=== PATIENT | female | born 1965 | race Caucasian/White ===

== ENCOUNTER 2017-10-20 13:30 | Emergency (ER) | payer OTHER, BC ==
[~2017-10-20] VITALS: Ht 157.5 cm; Wt 65.8 kg
[~2017-10-20 13:30] MED LIST: AMBIEN 10 MG TA10 MG PO; BIRTH CONTROL PO; CEFDINIR300 MG PO; FLEXERIL PO; FUROSEMIDE 20 M20 M1 PO; HYDRALAZINE 2525 MG PO; HYDROCHLOROTHIA25 M1 PO; HYDROCODONE-AP1 EA11 PO; HYDROXYCHLOROQ200 M1 PO; KLOR-CON 1010 MEQ PO; LASIX 20 MG TAB20 MG PO; LISINOPRIL40 MG PO; LYRICA 75 MG CA75 MG PO; LYRICA25 MG PO; MELOXICAM7.5 MG PO; METAXALONE800 MG PO; METHOTREXATE 22.5 MG PO; MIGRANAL1 ML NS; NEXIUM 40 MG CA40 M1 PO; NORCO 5-325 TA1 EACH PO; PHENERGAN 25 MG25 M1 PO; POTASSIUM20 PO; PREDNISONE50 MG PO; SINGULAIR 10 MG10 M1 PO; SULFASALAZINE500 M5 PO; TOPAMAX 100 MG100 MG PO; TOPAMAX 25 MG T25 M1 PO; TRIAMCINOLONE A80 G2 TOP; VALIUM5 MG PO; VENTOLIN HFA 1818 GM INH; VESICARE 5 MG TA5 M1 PO; XYZAL5 MG PO; ZOLOFT100 MG PO; [UNRECOGNIZED DRUG - OTHER] PO
[2017-10-20 15:20] LABS: URINE BILIRUBIN NEGATIVE (Negative); URINE BLOOD NEGATIVE (Negative); URINE CLARITY CLEAR; URINE COLOR YELLOW; URINE GLUCOSE-RANDOM* NEGATIVE (Negative); URINE KETONES NEGATIVE (Negative); URINE LEUKOCYTES-REFLEX 1+ (Negative); URINE NITRITE-REFLEX NEGATIVE (Negative); URINE PROTEIN (DIPSTICK) NEGATIVE (Negative); URINE UROBILINOGEN 0.2 E.U./dl (0.2-1.0)
[2017-10-20 15:23] LABS: HEMATOCRIT 37.4 % (37.0-47.0); HEMOGLOBIN 12.4 gm/dL (12.0-15.0); MCH 28.2 pg (26.0-34.0); MCHC 33.2 g/dL (28.0-37.0); RBC 4.4 mil/uL (4.20-5.00); RDW 20.3 % (10.5-14.5); WBC 10.1 thou/uL (4.0-11.0)
[2017-10-20 15:26] LABS: SQUAMOUS 4-10 Moderate /LPF (0-3); URINE RBC None Seen /HPF (0-2); URINE WBC-REFLEX 6-15 Few /HPF (0-5)
[2017-10-20 15:27] LABS: CASTS None Seen /LPF (None Seen); CRYSTALS None Seen /LPF (None Seen)
[2017-10-20 15:36] LABS: CALCIUM 9.3 mg/dL (8.5-10.1); CREATININE 0.8 mg/dL (0.6-1.0); POTASSIUM 4.1 mmol/L (3.5-5.1)
[2017-10-20 15:44] LABS: ALBUMIN 3.6 g/dL (3.4-5.0); TOTAL BILIRUBIN 0.2 mg/dL (<0.1-1.0); TOTAL PROTEIN 7.1 g/dL (6.4-8.2)
[2017-10-20] MEDS ORDERED: OXYCODONE HCL 55 MG PO (16:31)
[2017-10-20] MEDS ORDERED: FLAGYL500 MG PO (16:31)
[2017-10-20] MEDS ORDERED: CIPROFLOXACIN500 M1 PO (16:31)
[2017-10-20 16:35] VITALS: BP 128/67
[2017-12-17] MEDS ORDERED: MOBIC15 MG PO (10:51)
== END 2017-10-20 16:41 | disposition home or self-care (01) ==
LOC: ER 13:30
PROVIDERS: Emergency Medicine
DX: K57.92 Diverticulitis of intestine, part unspecified, without perforation or abscess without bleeding (principal); Z88.8 Allergy status to other drugs, medicaments and biological substances

== ENCOUNTER → 2017-12-17 | Outpatient (CLI) | payer OTHER, BC ==
[~2017-12-17] VITALS: Ht 157.5 cm; Wt 75.3 kg
[~2017-12-17] MED LIST changes: +CIPROFLOXACIN500 M1 PO; +FLAGYL500 MG PO; +MOBIC15 MG PO; +OXYCODONE HCL 55 MG PO
--- NOTE | ~2017-12-17 | HPC ---
[facility] [address] [place] [address] PAIN MANAGEMENT CONSULTATION Name: TYRON RUSSELL Room #: REG CARLOTA Asuncion.#: [id number] Admission: 12/17/17 Attend Phys: Munir Wood MD Discharge: Date of : 65 Report #: [id number] THIS REPORT FOR: //name// CC: Petar Wood DATE OF SERVICE: 12/17/2017 Followup visit for chronic low back pain with spondylosis. The patient would like facet injections. She has had very nice response to these treatments in the past. Extended relief has been noted and her last treatments in the facet region were in December 2016. She did have one interval appointment when she had an occipital nerve block, which may have been accompanied by an intravascular injection when she had a number of dizzy and lightheaded symptoms, we kept her in the office for a bit until they resolved. She responded to the injection, however. She has been told that she has breast cancer. A 10 cm lump was identified. It had been 2 years since she had had a mammogram. She has an upcoming mastectomy and has also consulted with a plastic surgeon. Because of the concern of being immobile for a period of time, she would like to get facet injections before the procedure. This seems to provide her with sustained relief when she is in the sitting and supine position. These injections are generally performed with a very small amount of triamcinolone and I think that they would be safe to perform prior to her upcoming surgery. MEDICATIONS: All medications were reviewed and reconciled. There have been no changes. I do not prescribe her medications. PHYSICAL EXAMINATION: GENERAL: Pleasant, alert and oriented. VITAL SIGNS: Blood pressure is 139/85, heart rate is 82. She is 5 feet 2 inches, 166 pounds for a BMI of 30.0. BREASTS: I did not perform a breast exam. MUSCULOSKELETAL: Examination of the spine reveals pain across the lower lumbar segment with forward flexion and worsened by back extension. Localized tenderness is located between the posterior superior iliac crest. IMPRESSION: Chronic low back pain with spondylosis. RECOMMENDATION: Bilateral L4-L5 and L5-S1 facet injections under fluoroscopic guidance. DESCRIPTION OF PROCEDURE: The patient was taken to fluoroscopic suite, placed prone, skin was prepped with ChloraPrep. Skin anesthetized first on the left. [address] [address] PAIN MANAGEMENT CONSULTATION Name: YVONNETYRON SWATHI Room #: REG [facility] Asuncion.#: [id number] Admission: 12/17/17 Attend Phys: Munir Wood MD Discharge: Date of : 65 Report #: [id number] A 25-gauge needle was advanced into the posterior inferior capsule of the joint at L5-S1 and L4-L5. No Omnipaque was utilized due to the small nature of the joint. I then injected each joint with 0.5 mL of 0.5% bupivacaine mixed with 10 mg of triamcinolone. Forman were removed. C-arm was moved to the right and a mirror image injection was performed at the L5-S1 and the L4-L5 facet joints on that side. She tolerated the procedure very well. She was observed for a short time in the recovery room. There were no complications. Her pain scores were reduced somewhat by the time she was discharged, and the plan is for her to follow up in the pain clinic on an as needed basis in the future. <ELECTRONICALLY SIGNED> By: Munir Wood MD 01/25/18 1408 [id number] Munir Wood MD /nt
[2017-12-17 10:35] VITALS: BP 139/85
== END ==
LOC: PAIN 07:23
DX: M47.896 Other spondylosis, lumbar region (principal); M54.5 Low back pain

== ENCOUNTER → 2020-01-05 | Outpatient (CLI) | payer BC, OTHER ==
[~2020-01-05] VITALS: Ht 157.5 cm; Wt 63.5 kg
[~2020-01-05] MED LIST changes: +DIHYDROERGOTAMIN1 ML NASAL; +KLOR-CON 10 ER10 MEQ PO; +MONTELUKAST PO; +NOLVADEX20 MG PO; +QNASL10.6 GM NASAL; +SPIRONOLACTONE25 MG PO; +TOPAMAX100 MG PO; +TRANSDERM-SCOP1 EACH TRANSDERM
--- NOTE | ~2020-01-05 | HPC ---
[facility] [place] [address] PAIN MANAGEMENT CONSULTATION Name: TYRON EDWARDS #: REG CARLOTA Torres#: [id number] Admission: 01/05/20 Attend Phys: Munir Wood MD Discharge: Date of : 65 Report #: [id number] THIS REPORT FOR: cc: ANGELINA MARS Physician not on staff Mnuir Wood MD ~ CC: ANGELINA MARS Physician staff Munir Wood DATE OF SERVICE: 01/05/2020 Followup visit today for chronic lumbosacral pain with lumbar spondylosis. The patient is a pleasant 54-year-old, who I last saw in 12/2017. At that time, she received L4-L5 and L5-S1 facet injections bilaterally. The injections were quite helpful providing months of pain relief. She, in fact, has not felt the need to return to the Pain Clinic for injections since those performed 2 years ago. Recently, her pain has been increasing in severity, limiting her mobility. She scores her daily pain as a 5-6/10. It is in the lumbar region with some radiation into the hips, but no further. There are no radicular components to her pain. She has been through a lot since I last saw her. She has had 10 surgeries for mastectomy and revision of the plastic surgery involved. She required a flap taken from the abdominal region and she has what looks to be a hernia in that region. She has an upcoming surgery planned for a Z-plasty or some sort of surgical revision of that scar. Her cancer is gone. She has completed all treatments. She fractured her ankle and required the care of an orthopedic surgeon that is completely now healed and she denies pain at this time. MEDICATIONS: Montelukast every nasal, spironolactone, topiramate, dihydroergotamine spray, transdermal scopolamine, tamoxifen, potassium, cyclobenzaprine, diazepam, Lasix, zolpidem and Xyzal. ALLERGIES: BUSPAR, PAROXETINE, TIZANIDINE. PHYSICAL EXAMINATION: VITAL SIGNS: Blood pressure 127/87, heart rate 73, respirations 14. She is 5 feet 2 inches, 157 pounds, BMI of 25.6. NECK: She has some neck pain and some cervical spondylitic discomfort with rotation, flexion and extension. Tenderness below the occiput. CHEST: Clear. [facility] [address] [place] [address] PAIN MANAGEMENT CONSULTATION Name: TYRON EDWARDS #: REG CLBuster Torres#: [id number] Admission: 01/05/20 Attend Phys: Munir Wood MD Discharge: Date of : 65 Report #: [id number] CARDIAC: Rhythm is regular. MUSCULOSKELETAL: Examination of the lumbar spine reveals tenderness across the lumbosacral segment. Pain is more significant with neck extension. Rotational movements also exacerbate pain. She has no radicular component. IMPRESSION: Lumbar spondylitic pain, which has responded beautifully to facet injections with good duration of response in the past. PROCEDURE: Bilateral L4-L5 and L5-S1 facet injections with bupivacaine and triamcinolone. After informed consent, she was taken to fluoroscopic suite where she was placed prone, skin was prepped with ChloraPrep. Skin was anesthetized first over the L4-L5 and then the L5-S1 facet. A 25-gauge 3-1/2 inch needles were gently advanced into position in the posterior inferior capsule. After negative aspiration, I injected each joint with 0.5 mL of 0.5% bupivacaine and 10 mg of triamcinolone. C-arm was moved to the right and a mirror image injection performed on that side, injecting the L4-L5, L5-S1 joints with the same solution and volume. She tolerated the injections well and was taken to recovery room for a short observation. Her pain score was 0 at discharge. Followup visit planned as needed. By: [id number] Munir Wood MD /nt
[2020-01-05 08:53] VITALS: BP 127/87
--- NOTE | 2020-01-05 09:12 | NUR ---
Pain Clinic Assessment: 1. History of Osteoarthritis: Not Applicable History of Rheumatoid Arthritis: HANDS 2. Height: 5 ft. 2 in. 157.5 cm. Weight: 140.0 lb. oz. 63.504 kg. Patient's BMI: 25.6 3. Vital Signs: BP: 127/87 Pulse: 73 Resp: 14 Temp: 02 Sat: 100 ECG Mon: 4. Pain Intensity: 5-6 5. Fall Risk: Dizziness: N Needs help standing or walking: N Fallen in the last 3 months: Y Fall risk comments: 6. Patient on Blood Thinner: None 7. History of Hypertension: N 8. Opioid Therapy greater than 6 weeks: N Opiate Contract Signed: 9. Risk Assessment Tool Provided: 0-LOW RISK 10. Functional Assessment Tool: 11. Recreational Drug Use: Never Drug Type: Tobacco Use: Never Smoker Tobacco Type: Amount or Packs/day: How Many Years: Alcohol Use: Yes Frequency: Special Occasions Quant:
== END | disposition home or self-care (01) ==
LOC: PAIN 06:41
DX: M47.816 Spondylosis without myelopathy or radiculopathy, lumbar region (principal); G89.29 Other chronic pain; G43.909 Migraine, unspecified, not intractable, without status migrainosus; Z98.890 Other specified postprocedural states; Z79.899 Other long term (current) drug therapy; Z88.8 Allergy status to other drugs, medicaments and biological substances

== ENCOUNTER → 2020-07-23 | Outpatient (CLI) | payer BC, OTHER ==
[~2020-07-23] VITALS: Ht 157.5 cm; Wt 67.0 kg
[~2020-07-23] MED LIST changes: +VENLAFAXINE HCL25 MG PO
--- NOTE | ~2020-07-23 | HPC ---
[facility] [place] [address] PAIN MANAGEMENT CONSULTATION Name: TYRON MOREIRA Room #: REG [facility].#: [id number] Admission: 07/23/20 Attend Phys: Munir Wood MD Discharge: Date of : 65 Report #: [id number] CC: Ramon Wood DATE OF SERVICE: 07/23/2020 Followup visit for lumbar spondylosis. The patient returns to pain clinic today for repeat lumbar facet injections. She has had these on several occasions and tends to get quite substantial pain relief for months at a time. Her last injections for this condition were performed on 01/04, the pain is now returning. Radiofrequency has been addressed, but the injections seemed to be more favorable and helpful for her. Pain today is across the low back, does not radiate into the legs. She scores it as a 7. MEDICATIONS: Venlafaxine, montelukast, betamethasone, spironolactone, dihydroergotamine, scopolamine, tamoxifen, potassium, cyclobenzaprine, diazepam, furosemide, zolpidem, Xyzal. ALLERGIES: PAROXETINE, BUSPAR, TIZANIDINE, BETA BLOCKERS. PHYSICAL EXAMINATION: GENERAL: Pleasant female, 27 BMI. VITAL SIGNS: Blood pressure 147/87, heart rate 70, respirations 14. Gait exam is normal. CHEST: Clear. CARDIAC: Rhythm is regular. MUSCULOSKELETAL: Spine reveals tenderness across the lumbosacral segment, pain mostly with back extension. Pain does not radiate at this time. Pain is localized across the lumbosacral segment. IMPRESSION: Lumbar spondylosis. Given prior good response lasting in excess of 4 months, I will repeat the injection today. PROCEDURE: Bilateral L4-L5 and L5-S1 facet injection with bupivacaine and triamcinolone. DESCRIPTION OF PROCEDURE: After informed consent, taken to the fluoroscopic suite. She was placed in prone position. We began on the left. Skin was anesthetized over the L4-L5 and L5-S1 facet joint. A 25-gauge needle was gently advanced into the recess at the base of each joint and capsule. After negative aspiration, I injected 0.5 mL of 0.5% bupivacaine and 10 mg of triamcinolone. We moved the C-arm then to the right and repeated the injection on the right using mirror image injections of the L4-L5 and L5-S1 joints on that side. She tolerated the procedure well. There were no complications. Pain was reduced in recovery room and she was discharged with a followup visit scheduled only as needed. Medications are prescribed by primary care physician. By: [id number] Munir Wood MD /nt
[2020-07-23 10:13] VITALS: BP 141/87
--- NOTE | 2020-07-23 10:30 | NUR ---
Pain Clinic Assessment: 1. History of Osteoarthritis: Not Applicable History of Rheumatoid Arthritis: HANDS 2. Height: 5 ft. 2 in. 157.5 cm. Weight: 147.8 lb. oz. 67.042 kg. Patient's BMI: 27.0 3. Vital Signs: BP: 141/87 Pulse: 70 Resp: 14 Temp: 02 Sat: 100 ECG Mon: 4. Pain Intensity: 7 5. Fall Risk: Dizziness: N Needs help standing or walking: N Fallen in the last 3 months: N Fall risk comments: 6. Patient on Blood Thinner: None 7. History of Hypertension: N 8. Opioid Therapy greater than 6 weeks: N Opiate Contract Signed: 9. Risk Assessment Tool Provided: 0-LOW RISK 10. Functional Assessment Tool: 11. Recreational Drug Use: Never Drug Type: Tobacco Use: Never Smoker Tobacco Type: Amount or Packs/day: How Many Years: Alcohol Use: Yes Frequency: Monthly Quant: 1 occasionally
== END | disposition home or self-care (01) ==
LOC: PAIN 06:58
PROVIDERS: ATTEND Anesthesiology Pain Medicine
DX: M47.816 Spondylosis without myelopathy or radiculopathy, lumbar region (principal); G43.909 Migraine, unspecified, not intractable, without status migrainosus; M06.9 Rheumatoid arthritis, unspecified; Z88.8 Allergy status to other drugs, medicaments and biological substances; Z79.899 Other long term (current) drug therapy; Z72.89 Other problems related to lifestyle

== ENCOUNTER → 2020-10-25 | Outpatient (CLI) | payer BC, OTHER ==
[~2020-10-25] VITALS: Ht 157.5 cm; Wt 64.7 kg
[~2020-10-25] MED LIST changes: +PROMETHAZINE-C473 ML PO; +ZPAK PO
[2020-10-25 10:36] VITALS: BP 138/96
--- NOTE | 2020-10-25 10:49 | NUR ---
Pain Clinic Assessment: 1. History of Osteoarthritis: Not Applicable History of Rheumatoid Arthritis: HANDS 2. Height: 5 ft. 2 in. 157.5 cm. Weight: 142.6 lb. oz. 64.683 kg. Patient's BMI: 26.1 3. Vital Signs: BP: 138/96 Pulse: 95 Resp: 16 Temp: 02 Sat: 98 ECG Mon: 4. Pain Intensity: 10 5. Fall Risk: Dizziness: Y Needs help standing or walking: N Fallen in the last 3 months: N Fall risk comments: 6. Patient on Blood Thinner: None 7. History of Hypertension: N 8. Opioid Therapy greater than 6 weeks: N Opiate Contract Signed: 9. Risk Assessment Tool Provided: 0-LOW RISK 10. Functional Assessment Tool: 11. Recreational Drug Use: Never Drug Type: Tobacco Use: Never Smoker Tobacco Type: Amount or Packs/day: How Many Years: Alcohol Use: Yes Frequency: Special Occasions Quant: 1
== END | disposition home or self-care (01) ==
LOC: PAIN 06:39
PROVIDERS: ATTEND Anesthesiology Pain Medicine
DX: M47.816 Spondylosis without myelopathy or radiculopathy, lumbar region (principal); M54.5 Low back pain; G89.29 Other chronic pain; G43.909 Migraine, unspecified, not intractable, without status migrainosus; Z98.890 Other specified postprocedural states; Z79.899 Other long term (current) drug therapy; Z88.8 Allergy status to other drugs, medicaments and biological substances

== ENCOUNTER → 2020-11-08 | Outpatient (CLI) | payer BC, OTHER ==
[~2020-11-08] VITALS: Ht 157.5 cm; Wt 68.8 kg
[2020-11-08 09:30] VITALS: BP 127/87
--- NOTE | 2020-11-08 09:57 | NUR ---
Pain Clinic Assessment: 1. History of Osteoarthritis: Not Applicable History of Rheumatoid Arthritis: HANDS 2. Height: 5 ft. 2 in. 157.5 cm. Weight: 151.6 lb. oz. 68.765 kg. Patient's BMI: 27.7 3. Vital Signs: BP: 127/87 Pulse: 83 Resp: 14 Temp: 02 Sat: 100 ECG Mon: 4. Pain Intensity: 7 5. Fall Risk: Dizziness: Y Needs help standing or walking: N Fallen in the last 3 months: N Fall risk comments: 6. Patient on Blood Thinner: None 7. History of Hypertension: N 8. Opioid Therapy greater than 6 weeks: N Opiate Contract Signed: 9. Risk Assessment Tool Provided: 0-LOW RISK 10. Functional Assessment Tool: 11. Recreational Drug Use: Never Drug Type: Tobacco Use: Never Smoker Tobacco Type: Amount or Packs/day: How Many Years: Alcohol Use: Yes Frequency: Quant:
== END ==
LOC: PAIN 06:46
PROVIDERS: ATTEND Anesthesiology Pain Medicine
DX: M47.811 Spondylosis without myelopathy or radiculopathy, occipito-atlanto-axial region (principal); Z88.8 Allergy status to other drugs, medicaments and biological substances; Z79.899 Other long term (current) drug therapy

== ENCOUNTER 2020-12-03 11:43 | Emergency (ER) | payer BC, OTHER ==
[~2020-12-03] VITALS: Ht 157.5 cm; Wt 63.5 kg
[2020-12-03 12:37] LABS: ABSOLUTE NEUTROPHILS 5.4 thou/uL (1.4-8.2); BASOPHILS 0.5 % (0.0-2.0); EOSINOPHILS 1.5 % (0.0-3.0); HEMATOCRIT 40.4 % (37.0-47.0); HEMOGLOBIN 13.1 gm/dL (12.0-15.0); LYMPHOCYTES 13.1 % (24.0-44.0); MCH 30.8 pg (26.0-34.0); MCHC 32.5 g/dL (28.0-37.0); MCV 94.9 fL (80.0-100.0); MONOCYTES 6.1 % (1.0-8.0); PLATELET COUNT 245 thou/uL (150-400); POLYS 78.8 % (36.0-66.0); RBC 4.26 mil/uL (4.20-5.00); RDW 14.5 % (10.5-14.5); WBC 6.8 thou/uL (4.0-11.0)
[2020-12-03 12:47] LABS: ANION GAP 12 mmol/L (7-16); BUN 12 mg/dL (7-18); CALCIUM 8.8 mg/dL (8.5-10.1); CHLORIDE 105 mmol/L (98-107); CO2 24 mmol/L (21-32); GLUCOSE 95 mg/dL (74-106); SODIUM 141 mmol/L (136-145)
[2020-12-03 12:59] LABS: TROPONIN-I <0.06 ng/mL (<0.06)
[2020-12-03 14:52] VITALS: BP 125/84
--- NOTE | 2020-12-04 06:48 | EKG ---
[place] [address] [facility] [place] [address] ELECTROCARDIOGRAM REPORT Name: MOREIRATYRON Mcqueen Room #: DEP [facility]#: [id number] Admission: 12/03/20 Attend Phys: Discharge: 12/03/20 Date of : 65 Report #: [id number] [facility] ED Test Date: 2020-12-03 Test Time: 11:49:28 Pat Name: TYRON MOREIRA Department: Room: Gender: F Quality Control Lab Technician: JABARI : 1965 Requested By: Feliciano Madrid Order Number: [id number] MD: Steven Trammell Measurements Intervals [place] Rate: 73 P: 30 ME: 121 QRS: 53 QRSD: 95 T: 33 QT: 406 QTc: 448 Interpretive Statements Sinus rhythm Low voltage, extremity leads Compared to ECG 01/12/2015 11:27:30 Low QRS voltage now present T-wave abnormality no longer present Electronically Signed On 12-04-2020 6:47:56 [employer] by Steven Trammell [email or web address] <ELECTRONICALLY SIGNED> By: Steven Trammell MD, [facility] 12/04/20 0647 [id number] [id number] Steven Trammell MD, FACC /EPI
== END 2020-12-03 14:53 | disposition home or self-care (01) ==
LOC: ER 11:43
PROVIDERS: Nurse Practitioner
DX: R07.9 Chest pain, unspecified (principal); H57.04 Mydriasis; Z79.899 Other long term (current) drug therapy; Z88.8 Allergy status to other drugs, medicaments and biological substances

== ENCOUNTER → 2020-12-03 | Outpatient (CLI) | payer BC, OTHER ==
[~2020-12-03] VITALS: Ht 157.5 cm; Wt 70.4 kg
[~2020-12-03] MED LIST changes: +BACTRIM DS TAB1 EAC1 PO
[2020-12-03 09:58] VITALS: BP 129/88
--- NOTE | 2020-12-03 10:22 | NUR ---
Pain Clinic Assessment: 1. History of Osteoarthritis: Not Applicable History of Rheumatoid Arthritis: HANDS 2. Height: 5 ft. 2 in. 157.5 cm. Weight: 155.2 lb. oz. 70.398 kg. Patient's BMI: 28.4 3. Vital Signs: BP: 129/88 Pulse: 77 Resp: 20 Temp: 02 Sat: 100 ECG Mon: 4. Pain Intensity: 7 5. Fall Risk: Dizziness: N Needs help standing or walking: N Fallen in the last 3 months: N Fall risk comments: 6. Patient on Blood Thinner: None 7. History of Hypertension: N 8. Opioid Therapy greater than 6 weeks: N Opiate Contract Signed: 9. Risk Assessment Tool Provided: 0-LOW RISK 10. Functional Assessment Tool: 11. Recreational Drug Use: Never Drug Type: Tobacco Use: Never Smoker Tobacco Type: Amount or Packs/day: How Many Years: Alcohol Use: Yes Frequency: Special Occasions Quant: 1
== END ==
LOC: PAIN 07:04
PROVIDERS: ATTEND Anesthesiology Pain Medicine
DX: M47.816 Spondylosis without myelopathy or radiculopathy, lumbar region (principal); G89.29 Other chronic pain; Z85.3 Personal history of malignant neoplasm of breast; Z79.891 Long term (current) use of opiate analgesic; Z79.899 Other long term (current) drug therapy

== ENCOUNTER → 2020-12-10 | Outpatient (CLI) | payer BC, OTHER | LOC: SJCVCIMAG 13:01 | PROVIDERS: ATTEND Internal Medicine | DX: I07.1 Rheumatic tricuspid insufficiency (principal); R00.0 Tachycardia, unspecified ==

== ENCOUNTER → 2021-01-17 | Outpatient (CLI) | payer BC, OTHER ==
[~2021-01-17] VITALS: Ht 157.5 cm; Wt 71.2 kg
[2021-01-17 08:25] VITALS: BP 136/89
--- NOTE | 2021-01-17 08:45 | NUR ---
Pain Clinic Assessment: 1. History of Osteoarthritis: Not Applicable History of Rheumatoid Arthritis: HANDS 2. Height: 5 ft. 2 in. 157.5 cm. Weight: 157.0 lb. oz. 71.215 kg. Patient's BMI: 28.7 3. Vital Signs: BP: 136/89 Pulse: 84 Resp: 14 Temp: 02 Sat: 100 ECG Mon: 4. Pain Intensity: 10 5. Fall Risk: Dizziness: N Needs help standing or walking: Y Fallen in the last 3 months: Y Fall risk comments: 6. Patient on Blood Thinner: None 7. History of Hypertension: N 8. Opioid Therapy greater than 6 weeks: N Opiate Contract Signed: 9. Risk Assessment Tool Provided: 0-LOW RISK 10. Functional Assessment Tool: 11. Recreational Drug Use: Never Drug Type: Tobacco Use: Never Smoker Tobacco Type: Amount or Packs/day: How Many Years: Alcohol Use: Yes Frequency: Quant:
== END | disposition home or self-care (01) ==
LOC: PAIN 12-17 09:56
PROVIDERS: ATTEND Anesthesiology Pain Medicine
DX: M54.16 Radiculopathy, lumbar region (principal); M48.061 Spinal stenosis, lumbar region without neurogenic claudication; G89.29 Other chronic pain; Z98.890 Other specified postprocedural states; Z79.899 Other long term (current) drug therapy; Z88.8 Allergy status to other drugs, medicaments and biological substances

== ENCOUNTER → 2021-03-07 | Outpatient (CLI) | payer BC, OTHER ==
[~2021-03-07] VITALS: Ht 154.9 cm; Wt 68.5 kg
[~2021-03-07] MED LIST changes: +LINZESS72 MCG PO; +ROSUVASTATIN CA20 MG PO
[2021-03-07 09:20] VITALS: BP 136/94
--- NOTE | 2021-03-07 09:26 | NUR ---
Pain Clinic Assessment: 1. History of Osteoarthritis: HANDS History of Rheumatoid Arthritis: Not Applicable 2. Height: 5 ft. 1 in. 154.9 cm. Weight: 151.0 lb. oz. 68.493 kg. Patient's BMI: 28.5 3. Vital Signs: BP: 136/94 Pulse: 71 Resp: 16 Temp: 02 Sat: 100 ECG Mon: 4. Pain Intensity: 4 5. Fall Risk: Dizziness: N Needs help standing or walking: N Fallen in the last 3 months: N Fall risk comments: 6. Patient on Blood Thinner: None 7. History of Hypertension: N 8. Opioid Therapy greater than 6 weeks: N Opiate Contract Signed: 9. Risk Assessment Tool Provided: 0-LOW RISK 10. Functional Assessment Tool: 11. Recreational Drug Use: Never Drug Type: Tobacco Use: Never Smoker Tobacco Type: Amount or Packs/day: How Many Years: Alcohol Use: Yes Frequency: Special Occasions Quant: 1
== END | disposition home or self-care (01) ==
LOC: PAIN 07:13
PROVIDERS: ATTEND Anesthesiology Pain Medicine
DX: M48.061 Spinal stenosis, lumbar region without neurogenic claudication (principal); M54.16 Radiculopathy, lumbar region; G89.29 Other chronic pain; G43.909 Migraine, unspecified, not intractable, without status migrainosus; Z98.890 Other specified postprocedural states; Z79.899 Other long term (current) drug therapy; Z88.8 Allergy status to other drugs, medicaments and biological substances

== ENCOUNTER → 2021-05-02 | Outpatient (CLI) | payer BC, OTHER ==
[~2021-05-02] VITALS: Ht 157.5 cm; Wt 70.4 kg
[2021-05-02 13:02] VITALS: BP 142/88
--- NOTE | 2021-05-02 13:18 | NUR ---
Pain Clinic Assessment: 1. History of Osteoarthritis: HANDS History of Rheumatoid Arthritis: Not Applicable 2. Height: 5 ft. 2 in. 157.5 cm. Weight: 155.2 lb. oz. 70.398 kg. Patient's BMI: 28.4 3. Vital Signs: BP: 142/88 Pulse: 74 Resp: 14 Temp: 02 Sat: 100 ECG Mon: 4. Pain Intensity: 10 5. Fall Risk: Dizziness: N Needs help standing or walking: N Fallen in the last 3 months: N Fall risk comments: 6. Patient on Blood Thinner: None 7. History of Hypertension: N 8. Opioid Therapy greater than 6 weeks: N Opiate Contract Signed: 9. Risk Assessment Tool Provided: 0-LOW RISK 10. Functional Assessment Tool: 11. Recreational Drug Use: Never Drug Type: Tobacco Use: Never Smoker Tobacco Type: Amount or Packs/day: How Many Years: Alcohol Use: Yes Frequency: Special Occasions Quant: 2
== END | disposition home or self-care (01) ==
LOC: PAIN 10:28
PROVIDERS: ATTEND Anesthesiology Pain Medicine
DX: M54.16 Radiculopathy, lumbar region (principal); M48.061 Spinal stenosis, lumbar region without neurogenic claudication; G89.29 Other chronic pain; Z98.890 Other specified postprocedural states; Z79.899 Other long term (current) drug therapy; Z88.8 Allergy status to other drugs, medicaments and biological substances